=== PATIENT | female | born 1995 | race Caucasian/White ===

== ENCOUNTER 2017-02-04 15:58 | Emergency (ER) | payer MEDICAID ==
[~2017-02-04] VITALS: Ht 162.6 cm; Wt 65.0 kg
[2017-02-04 16:17] VITALS: BP 115/73
== END 2017-02-04 20:30 | disposition left against medical advice (07) ==
LOC: ER 16:25
DX: Z53.21 Procedure and treatment not carried out due to patient leaving prior to being seen by health care provider (principal)